=== PATIENT | female | born 1985 | race Asian ===

== ENCOUNTER 2017-05-01 10:07 | Inpatient (IN) | payer SELFPAY ==
[~2017-05-01] VITALS: Ht 160 cm; Wt 74.4 kg
[2017-05-01] MEDS ORDERED: LR 1,000 ML IV ONE (10:22)
[2017-05-01] MEDS ORDERED: OXYTOCIN/NORMAL SALINE 1,000 ML IV SCH ×2 (10:22→23:51)
[2017-05-01] MEDS ORDERED: NALBUPHINE HCL 10 MG/ML AMP IVP PRN (10:30)
[2017-05-01 11:07] LABS: BASOPHILS % (AUTO) 0.2 % (0.0-2.0); EOSINOPHILS # (AUTO) 0.1 K/uL (0.0-0.4); EOSINOPHILS % (AUTO) 0.6 % (0.0-4.0); HEMATOCRIT 36.4 % (36-48); HEMOGLOBIN 12.1 g/dL (12.0-16.0); LYMPHOCYTES # (AUTO) 1.7 K/uL (1.0-5.5); LYMPHOCYTES % (AUTO) 15.1 % (20.5-51.5); MEAN CORPUSCULAR HEMOGLOBIN 31 pg (27-31); MEAN CORPUSCULAR HGB CONC 33 % (32-36); MEAN CORPUSCULAR VOLUME 93 fL (79.0-98.0); MONOCYTES # (AUTO) 0.8 K/uL (0.0-1.0); MONOCYTES % (AUTO) 6.7 % (1.7-9.3); NEUTROPHILS # (AUTO) 8.9 K/uL (1.8-7.7); NEUTROPHILS % (AUTO) 77.4 % (40.0-70.0); PLATELET COUNT (AUTO) 312 K/uL (130-430); RED BLOOD CELL COUNT(AUTO) 3.91 MIL/uL (4.2-6.2); RED CELL DISTRIBUTION WIDTH 13.2 % (9.0-15.0); WHITE BLOOD COUNT (AUTO) 11.5 K/uL (4.8-10.8)
[2017-05-01 17:34] VITALS: BP_SYST 110
[2017-05-01] MEDS ORDERED: FLU VACC QS 2017-18(36MOS+)/PF 0.5 ML/SYR SYRINGE I.M. PRN (17:45)
[2017-05-01] MEDS ORDERED: FENT2mCg/mL-ROPIVA0.2%/NS EPID 150 ML EP ONE (21:06)
[2017-05-01] MEDS ORDERED: fentaNYL CITRATE/PF 100 MCG/2 ML AMP ONE (21:06)
[2017-05-01] MEDS: LR 1,000 ML IV SCH ×2 (21:34→22:24)
[2017-05-01] MEDS ORDERED: LR 500 ML IV ONE (22:35)
[2017-05-01] MEDS ORDERED: fentaNYL CITRATE/PF 100 MCG/2 ML AMP IVP ONE (22:45)
[2017-05-01] MEDS ORDERED: ePHEDrine sulfate 50 MG/ML VIAL IVP PRN (22:45)
[2017-05-01] MEDS ORDERED: FENT2mCg/mL-ROPIVA0.2%/NS EPID 150 ML EP SCH (22:45)
[2017-05-01] MEDS ORDERED: METHYLERGONOVINE MALEATE 0.2 MG/ML AMP ONE (22:51)
[2017-05-01] MEDS ORDERED: OXYTOCIN/NORMAL SALINE 1,000 ML IV ONE (23:51)
[2017-05-02] MEDS ORDERED: TEMAZEPAM 15 MG CAPSULE PO PRN
[2017-05-02] MEDS ORDERED: LANOLIN 7 GM OINT. TP PRN
[2017-05-02] MEDS ORDERED: SENNOSIDES/DOCUSATE SODIUM 1 TAB TABLET(SENOKOT-S) PO PRN
[2017-05-02] MEDS ORDERED: MEASLES,MUMPS&RUBELLA VACC/PF 12500 UNIT/0.5 ML VIAL SUBQ PRN
[2017-05-02] MEDS ORDERED: HYDROcodone/ACETAMIN 5-325 MG TAB (NORCO/ VICODIN) PO PRN ×2
[2017-05-02] MEDS ORDERED: RHO(D) IMMUNE GLOBULIN/MALTOSE 1500 UNITS/1.3 ML (WINHRO) IM PRN
[2017-05-02] MEDS ORDERED: DERMOPLAST SPRAY TP PRN
[2017-05-02] MEDS ORDERED: ACETAMINOPHEN 325 MG TABLET PO PRN
[2017-05-02] MEDS ORDERED: DOCUSATE SODIUM 100 MG CAPSULE PO PRN
[2017-05-02] MEDS ORDERED: HYDROCORTISONE 0.5%, 28.35 GM TOPICAL CREAM TP PRN
[2017-05-02] MEDS ORDERED: ANUSOL 1 EA SUPP.RECT (PREPARATION H) RC PRN
[2017-05-02] MEDS ORDERED: GLYCERIN/WITCH HAZEL (TUCKS PADS) TP PRN
[2017-05-02] MEDS ORDERED: METHYLERGONOVINE MALEATE 0.2 MG TABLET PO PRN
[2017-05-02] MEDS: IBUPROFEN 600 MG TABLET PO SCH ×5 (00:16→23:31)
[2017-05-02 06:52] LABS: HEMOGLOBIN 10.3 g/dL (12.0-16.0)
[2017-05-03] MEDS: IBUPROFEN 600 MG TABLET PO SCH ×2 (05:37→12:29)
[2017-05-03] MEDS ORDERED: DIPH-TET-PERTUS Vaccine 0.5 ML VIAL/Tdap (ADACEL) I.M. PRN (12:15)
== END 2017-05-03 14:00 | disposition home or self-care (01) | DRG 775 ==
LOC: SPU 10:07
PROVIDERS: ADMIT Obstetrics & Gynecology; ATTEND Obstetrics & Gynecology
PROC: 10E0XZZ Delivery of Products of Conception, External Approach (ICD-10-PCS; principal; 2017-05-02)
PROC: 3E0R3BZ Introduction of Anesthetic Agent into Spinal Canal, Percutaneous Approach (ICD-10-PCS; 2017-05-02)
PROC: 00HU33Z Insertion of Infusion Device into Spinal Canal, Percutaneous Approach (ICD-10-PCS; 2017-05-02)
PROC: 3E0234Z Introduction of Serum, Toxoid and Vaccine into Muscle, Percutaneous Approach (ICD-10-PCS; 2017-05-02)
DX: O69.81X0 Labor and delivery complicated by cord around neck, without compression, not applicable or unspecified (principal); Z23 Encounter for immunization; Z37.0 Single live birth; Z3A.39 39 weeks gestation of pregnancy
CPT/HCPCS: 36415; 81002-TC; 85018-TC; 85025; 86592; 86870; 86886; 86900; 86901; 90715; J2210; J2590; J3010; J7120; Q2037